=== PATIENT | female | born 1970 | race Asian ===

== ENCOUNTER 2019-01-17 22:35 | Emergency (ER) | payer BC, OTHER ==
--- NOTE | 2019-01-17 22:42 | PDOC ---
History of Present Illness - General History Source: Patient Exam Limitations: No Limitations - History of Present Illness Initial Comments: 01/17/19 23:06 The patient is a 48 year old female, with no significant past medical history, who presents to the emergency department with, a laceration to the bridge of the nose. As per patient, she was doing pull-ups with a door-mounted pull-up bar when it became loose and fell onto her nose. She notes falling onto her buttocks and immediate bleeding to the bridge of her nose with a mild headache and dizziness, prompting her arrival to the ED. Patient is unaware of her last tetanus shot. She denies any LOC. She denies change in strength or sensation. She denies recent nausea, vomit, diarrhea or constipation. She denies recent dysuria, frequency, urgency or hematuria. She denies recent chest pain or shortness of breath. Allergies: NKDA Past surgical history: None reported. Social history: Social alcohol usage. Nonsmoker. Denies recreational drug use. <Windy Hicks - Last Filed: 01/17/19 23:28> <Amber Nicholas - Last Filed: 01/18/19 04:09> - General Chief Complaint: Injury Stated Complaint: LACERATION BRIDGE OF NOSE Time Seen by Provider: 01/17/19 22:37 Past History <Windy Hicks - Last Filed: 01/17/19 23:28> <Amber Nicholas - Last Filed: 01/18/19 04:09> - Past Medical History Allergies/Adverse Reactions: Allergies Allergy/AdvReac Type Severity Reaction Status Date / Time No Known Allergies Allergy Verified 01/17/19 22:39 Home Medications: Ambulatory Orders Cephalexin Monohydrate [Keflex -] 500 mg PO Q8H #20 capsule 01/18/19 traMADol HCL [Ultram -] 50 mg PO Q8H PRN #6 tablet MDD 2 tabs 01/18/19 Review of Systems - Review of Systems Able to Perform ROS?: Yes Comments:: 01/17/19 23:06 CONSTITUTIONAL: Absent: fever, no chills, no fatigue EYES: Absent: visual changes ENT: Present: Laceration to the bridge of the nose. Absent: ear pain, no sore throat CARDIOVASCULAR: Absent: chest pain, no palpitations RESPIRATORY: Absent: cough, no SOB GI: Absent: abdominal pain, no nausea, no vomiting, no constipation, no diarrhea GENITOURINARY: Absent: dysuria, no frequency, no hematuria MUSKULOSKELETAL: Absent: back pain, no arthralgia, no myalgia SKIN: Absent: rash NEURO: Present: Headache, Dizziness. All Other Systems: Reviewed and Negative <Windy Hicks - Last Filed: 01/17/19 23:28> *Physical Exam - Vital Signs Last Vital Signs Temp Pulse Resp BP Pulse Ox 98 F 84 16 157/91 100 01/17/19 22:40 01/17/19 22:40 01/17/19 22:40 01/17/19 22:40 01/17/19 22:40 - Physical Exam Comments: 01/17/19 23:06 GENERAL: The patient is awake, alert, and fully oriented, in no acute distress. +HEAD: Nose: 1 cm full thickness, linear, horizontal laceration to bridge of the nose with mild surround edema and tenderness. No obvious deformity to the nose. Dry blood to the bilateral nares without any obvious septal deviation. EYES: Pupils equal, round and reactive to light, extraocular movements intact, sclera anicteric, conjunctiva clear. EXTREMITIES: Normal range of motion, no edema. NEUROLOGICAL: Alert and oriented x3. Cranial nerves II through XII are intact. Normal speech. Gait is stable. PSYCH: Normal mood, normal affect. SKIN: Warm, Dry, normal turgor, no rashes noted. <Windy Hicks - Last Filed: 01/17/19 23:28> Moderate Sedation - Procedure Monitoring Vital Signs: Procedure Monitoring Vital Signs Temperature 98 F 01/17/19 22:40 Pulse Rate 84 01/17/19 22:40 Respiratory Rate 16 01/17/19 22:40 Blood Pressure 157/91 01/17/19 22:40 O2 Sat by Pulse Oximetry (%) 100 01/17/19 22:40 <Windy Hicks - Last Filed: 01/17/19 23:28> Procedures - Laceration/Wound Repair Anterior Nose Wound Length: to 2.5 cm Wound Explored: clean Wound's Depth, Shape: linear Irrigated w/ Saline: Yes Betadine Prep: No (Hibiclens/alcohol) Anesthesia: 2% Lidocaine w/ Epi Amount of Anesthetic (ccs): 2 Wound Repaired With: Sutures Suture Size/Type: 6:0 Number of Sutures: 5 Sterile Dressing Applied: No Splint Applied: No Sling Applied: No Progress: Area of the nasal bridge laceration cleansed with Hibiclens/alcohol solution and sterilely draped. 2 mL of 2% lidocaine with epinephrine infiltrated into the wound for local anesthesia. Wound was irrigated with 30 mL of sterile normal saline. Wound edges approximated and Wound closed with 5 interrupted sutures of 6-0 nylon. Bacitracin ointment applied to the wound. Patient tolerated procedure well <Amber Nicholas - Last Filed: 01/18/19 04:09> ED Treatment Course - ADDITIONAL ORDERS Additional order review: Laboratory Results 01/17/19 22:50 Urine HCG, Qual Negative <Windy Hicks - Last Filed: 01/17/19 23:28> Progress Note - Progress Note Progress Note: Documentation has been prepared under my direction and personally reviewed by me in its entirety. I attest that this documented accurately reflects all work, treatment, procedures and medical decision making performed by me. <Amber Nicholas - Last Filed: 01/18/19 04:09> Medical Decision Making - Medical Decision Making As noted above, this otherwise healthy 48-year-old woman presents with an injury to her midface sustained just prior to presentation: Patient was attempting to pull up on overhead bar when the bar became loose and struck patient's nasal bridge as she fell back onto the floor, impacting her buttocks ( no head or neck injury and patient denies LOC). Patient describes "blood all over her face"from nasal bridge laceration and possibly also a nosebleed. She now has pain in the area of the laceration/blunt injury of her nose and mild lightheadedness. She denies headache or neck pain. Exam as noted Nasal x-ray reveals nasal bone fracture with significant separation of fragments. Repair of laceration as noted above (patient was presented with option of having plastic surgery closure but opted for repair here by ER staff). Patient received Keflex 500 mg by mouth at the time of the repair. Keflex will be continued at 500 mg 3 times a day for one week Patient will have follow-up with plastic surgery: referral information given to the patient. She is been advised to call the office tomorrow to make an appointment for next week. Even though the patient did not have loss of consciousness, she still suffered a closed head injury. This was explained to the patient along with recommendations to avoid strenuous physical or mental activity for the next 24 hours. She should return to the emergency room immediately if she has severe headache, persistent nausea/vomiting, lethargy or severe lightheadedness. <Amber Nicholas - Last Filed: 01/18/19 04:09> *DC/Admit/Observation/Transfer - Attestations Scribe Attestion: 01/17/19 23:07 Documentation prepared by Windy Hicks, acting as center medical and lab director for Ambre Nicholas MD. <Windy Hicks - Last Filed: 01/17/19 23:28> <Amber Nicholas - Last Filed: 01/18/19 04:09> Diagnosis at time of Disposition: Nasal bone fracture Qualifiers: Encounter type: initial encounter Fracture type: open Qualified Code(s): S02.2XXB - Fracture of nasal bones, initial encounter for open fracture Nasal laceration Qualifiers: Encounter type: initial encounter Qualified Code(s): S01.21XA - Laceration without foreign body of nose, initial encounter - Discharge Dispostion Disposition: HOME Condition at time of disposition: Stable - Prescriptions Prescriptions: Cephalexin Monohydrate [Keflex -] 500 mg PO Q8H #20 capsule traMADol HCL [Ultram -] 50 mg PO Q8H PRN #6 tablet MDD 2 tabs PRN Reason: Pain - Referrals Referrals: Jeanne Gerardo MD [Staff Physician] - - Patient Instructions Printed Discharge Instructions: Nose Fracture, DI for Closed Head Injury Additional Instructions: Keep head elevated on extra pillows for the next 2 nights Tylenol as needed for [id number] pain/tramadol 50 mg up to twice a day as needed for severe pain Keflex 500 mg 3 times a day for 1 week Keep wound as dry as possible for the next 2 days, then can wet area briefly Bacitracin to wound daily until seen by plastic surgeon Call 's (plastic surgeon) office in the morning and make appointment for follow-up within the next 5-7 days Avoid strenuous activity for the next 48 hours Return to ER if you have severe headache/vomiting/severe dizziness
[2019-01-17 22:45] VITALS: BP 157/91; PULSE 84; TEMP 98; BMI 20.7
[2019-01-17] MEDS ORDERED: DIPHTH,PERTUSS(ACELL),TET 0.5 ML DISP.SYRIN IM ONE (23:29)
[2019-01-17] MEDS ORDERED: LIDO 2%/EPI 1:200000 PRESRVFRE (20 ML SDVIAL) ONE (23:43)
[2019-01-18] MEDS ORDERED: CEPHALEXIN MONOHYDRATE 500 MG CAPSULE (UD) ONE (00:37)
[2019-01-18] MEDS ORDERED: DIPHTH,PERTUSS(ACELL),TET 0.5 ML DISP.SYRIN IM ONE (00:37)
[2019-01-18] MEDS ORDERED: CEPHALEXIN MONOHYDRATE 500 MG CAPSULE (UD) PO ONE (00:42)
== END 2019-01-18 00:53 | disposition home or self-care (01) ==
LOC: FER 22:35
PROC: 3E0234Z Introduction of Serum, Toxoid and Vaccine into Muscle, Percutaneous Approach (ICD-10-PCS; principal; 2019-01-17)
PROC: 0HQ1XZZ Repair Face Skin, External Approach (ICD-10-PCS; 2019-01-17)
DX: S01.21XA Laceration without foreign body of nose, initial encounter (principal); S02.2XXB Fracture of nasal bones, initial encounter for open fracture
CPT/HCPCS: 70160-TC-FY; 84703; 90715; 99281-25